=== PATIENT | female | born 1980 | race Caucasian/White ===

== ENCOUNTER → 2017-02-17 | Outpatient (CLI) | payer OTHER ==
[~2017-02-17] MED LIST: AC500T PO; ACET-789 PO; ACHYD1T PO; BPR150TCR PO; CALC-760 PO; DCS100C PO; FAMO20TA5 PO; FOLI0.4T2 PO; HYDR1TAB75 PO; IBP600T1 PO; IBP800T PO; METH0.2T45 PO; PREN1TAB39 PO
== END ==
LOC: WSo 09:14
PROVIDERS: ATTEND Obstetrics & Gynecology
DX: Z41.8 Encounter for other procedures for purposes other than remedying health state (principal)
CPT/HCPCS: 96372

== ENCOUNTER 2017-05-04 10:18 | Outpatient (CLI) | payer OTHER ==
[~2017-05-04] VITALS: Ht 167.6 cm; Wt 78.9 kg
[2017-05-04 10:24] VITALS: BP 127/77
[2017-05-04] MEDS ORDERED: ESCI10TA PO (10:28)
== END 2017-05-04 10:35 | disposition home or self-care (01) ==
LOC: PREOP 10:18
PROVIDERS: ATTEND Obstetrics & Gynecology
DX: Z01.818 Encounter for other preprocedural examination (principal); O34.219 Maternal care for unspecified type scar from previous cesarean delivery; O99.019 Anemia complicating pregnancy, unspecified trimester; Z3A.00 Weeks of gestation of pregnancy not specified
CPT/HCPCS: 87081

== ENCOUNTER 2017-05-08 10:00 | Inpatient (IN) | payer OTHER ==
[~2017-05-08] VITALS: Ht 167.6 cm; Wt 78.9 kg
[~2017-05-08 10:00] MED LIST changes: +ESCI10TA PO
[2017-05-08 10:45] LABS: BASOPHILS % (AUTO) 0 % (0-10); EOSINOPHILS # (AUTO) 0.1 10^3/uL (0.0-0.3); EOSINOPHILS % (AUTO) 1 % (0-10); LYMPHOCYTES # (AUTO) 1.2 X 10^3 (1.0-4.0); LYMPHOCYTES % (AUTO) 16 % (12-44); MEAN CORPUSCULAR HEMOGLOBIN 33 PG (25-34); MEAN CORPUSCULAR HGB CONC 35 G/DL (32-36); MEAN CORPUSCULAR VOLUME 95 FL (80-99); MEAN PLATELET VOLUME 10.9 FL (7.4-10.4); MONOCYTES # (AUTO) 0.7 X 10^3 (0.0-1.0); MONOCYTES % (AUTO) 9 % (0-12); NEUTROPHILS # (AUTO) 5.9 X 10^3 (1.8-7.8); NEUTROPHILS % (AUTO) 74 % (42-75); PLATELET COUNT 153 10^3/uL (130-400); RED BLOOD COUNT 3.32 10^6/uL (4.35-5.85); RED CELL DISTRIBUTION WIDTH 13.5 % (10.0-14.5); WHITE BLOOD COUNT 7.9 10^3/uL (4.3-11.0)
[2017-05-08] MEDS ORDERED: FAMOTIDINE 20MG/2ML IV (PEPCID) IV ONE (10:45)
[2017-05-08] MEDS ORDERED: METOCLOPRAMIDE INJ 10 MG/2 ML (REGLAN) IV ONE (10:45)
[2017-05-08] MEDS ORDERED: CITRIC ACID/SOB CIT (BICITRA) 30 ML UDC PO ONE (10:45)
[2017-05-08] MEDS ORDERED: CATHETER FLUSH 10 ML SYR IV PRN ×2 (10:45)
[2017-05-08] MEDS ORDERED: ceFAZolin 2 GM/NS 50 ML IV ONE (10:45)
[2017-05-08] MEDS ORDERED: metroNIDAZOLE 500 MG/100 ML IVPB (PRE-MIX) IV ONE (10:45)
[2017-05-08] MEDS ORDERED: LACTATED RINGERS 1,000 ML IV ONE ×2 (10:51→10:54)
[2017-05-08] MEDS ORDERED: OXYTOCIN/NORMAL SALINE 1,000 ML IV ONE (10:51)
[2017-05-08] MEDS ORDERED: fentaNYL INJECTION 100 MCG/2 ML AMP ONE (10:52)
[2017-05-08] MEDS ORDERED: ONDANSETRON 4 MG/2 ML (SDV) Z0FRAN ONE (10:52)
[2017-05-08 10:53] VITALS: BP 132/83
[2017-05-08] MEDS ORDERED: D5 LR IV SOLUTION 1,000 ML IV SCH (11:47)
[2017-05-08] MEDS ORDERED: OXYTOCIN/NORMAL SALINE 500 ML IV SCH (11:49)
--- NOTE | 2017-05-08 11:54 | History & Physical ---
History and Physical Date Seen by Provider: May 08, 2017 Time Seen by Provider: 11:52 this patient is a 36-year-old 2 white female with an EDC of May 12, 2017 admitted now for repeat delivery. Patient's has been uncomplicated to date. She denies rupture membranes or bleeding. She does feel baby moving. Her blood type is Rh- and she did receive RhoGAM around 28 weeks gestation. allergies are none Medications are vitamins and Lexapro Past medical history, past surgical history obstetric history family history and social histories are per the antepartum record HEENT exam is normal Neck is supple no lymphadenopathy no thyromegaly Abdomen is gravid soft nontender nondistended Extremities show no clubbing cyanosis. There is no Homans sign. Pelvic exam is deferred Work is as follows Laboratory Tests Test 05/08/17 10:12 Range/Units White Blood Count 7.9 4.3-11.0 10^3/uL Red Blood Count 3.32 L 4.35-5.85 10^6/uL Hemoglobin 11.1 L 11.5-16.0 G/DL Hematocrit 32 L 35-52 % Mean Corpuscular Volume 95 80-99 FL Mean Corpuscular Hemoglobin 33 25-34 PG Mean Corpuscular Hemoglobin Concent 35 32-36 G/DL Red Cell Distribution Width 13.5 10.0-14.5 % Platelet Count 153 130-400 10^3/uL Mean Platelet Volume 10.9 H 7.4-10.4 FL Neutrophils (%) (Auto) 74 42-75 % Lymphocytes (%) (Auto) 16 12-44 % Monocytes (%) (Auto) 9 0-12 % Eosinophils (%) (Auto) 1 0-10 % Basophils (%) (Auto) 0 0-10 % Neutrophils # (Auto) 5.9 1.8-7.8 X 10^3 Lymphocytes # (Auto) 1.2 1.0-4.0 X 10^3 Monocytes # (Auto) 0.7 0.0-1.0 X 10^3 Eosinophils # (Auto) 0.1 0.0-0.3 10^3/uL Basophils # (Auto) 0.0 0.0-0.1 10^3/uL monitor shows occasional contractions and a normal heart rate pattern Assessment and plan 39-3/7 weeks' gestation with previous C-sections 2 for repeat delivery. Surgical risk complication recovering follow-up involvement fully discussed patient is prepared to proceed term at 39-3/7 weeks gestation for repeat Allergies and Home Medications Allergies Coded Allergies: No Known Drug Allergies (Unverified , 06/20/11) Home Medications Escitalopram Oxalate 10 Mg Tablet, 10 MG PO HS, (Reported) Vits W-Ca,Fe,Fa(<1MG) 1 Each Tablet, 1 EACH PO HS, (Reported) Clinical Quality Measures DVT/VTE Risk/Contraindication: Risk Factor Score Per Nursin RFS Level Per Nursing on Admit: 1=Low/No VTE PPX CARMITA WILLAMS MD May 08, 2017 11:54 am
[2017-05-08] MEDS ORDERED: D5 LR IV SOLUTION 1,000 ML IV ONE (11:57)
[2017-05-08] MEDS ORDERED: metroNIDAZOLE 500MG/100ML IVPB 100 ML IV ONE (12:00)
[2017-05-08] MEDS ORDERED: MEASLES,MUMPS,RUBELLA 1 EA INJ SC ONE (12:00)
[2017-05-08] MEDS ORDERED: PROMETHAZINE INJ 25 MG/ML (PHENERGAN) AMP IM PRN (12:00)
[2017-05-08] MEDS ORDERED: TETANUS,DIPTH,PERTUSS P/F (BOOSTRIX) 0.5 ML VIAL IM ONE (12:00)
[2017-05-08] MEDS ORDERED: ceFAZolin INJECTION 2,000 MG in NS (IVPB) 50 ML IV ONE (12:00)
[2017-05-08] MEDS ORDERED: MEPERIDINE (DEMEROL) INJ 100 MG/ML IM PRN (12:00)
[2017-05-08] MEDS ORDERED: KETOROLAC 30 MG/ML VIAL IVP ONE (12:50)
--- NOTE | 2017-05-08 12:59 | Progress Note-Post Operative ---
Post-Operative Progess Note Surgeon (s)/Rack Maker (s) Surgeon CARMITA WILLAMS MD Rack Maker: AMANDA WILLAMS, CC5 Pre-Operative Diagnosis repeat delivery Post-Operative Diagnosis same Procedure & Operative Findings Date of Procedure 05/08/17 Procedure Performed/Findings repeat delivery of a viable male infant with Apgars of 8 and 9 at 5 minutes respectfully weight of 8 lbs. 1 oz. or blood pH 7.27 Anesthesia Type spinal Estimated Blood Loss Estimated blood loss (mL): 600 mL Specimens/Packing Specimens Removed placenta and umbilical cord Packing: none CARMITA WILLAMS MD May 08, 2017 12:59 pm
[2017-05-08] MEDS ORDERED: diphenhydrAMINE 50 MG/ML INJ (BENADRYL) IV PRN (13:00)
[2017-05-08] MEDS ORDERED: ONDANSETRON 4 MG/2 ML (SDV) Z0FRAN IVP PRN (13:00)
[2017-05-08] MEDS ORDERED: METOCLOPRAMIDE INJ 10 MG/2 ML (REGLAN) IV PRN (13:00)
[2017-05-08] MEDS ORDERED: NALOXONE 0.4 MG/ML 1 ML (NARCAN) VIAL IV PRN ×2 (13:00)
[2017-05-08] MEDS ORDERED: MEPERIDINE (DEMEROL) INJ 50 MG/ML IVP PRN (13:00)
[2017-05-08] MEDS ORDERED: ONDANSETRON 4 MG/2 ML (SDV) Z0FRAN IV PRN (13:00)
[2017-05-08] MEDS ORDERED: morphine INJ 10 MG/ML 1ML (SYR OR VIAL) IVP PRN (13:00)
[2017-05-08 13:50] VITALS: BP 128/67
[2017-05-08 14:20] VITALS: BP 141/79
[2017-05-08] MEDS ORDERED: fentaNYL INJECTION 100 MCG/2 ML AMP IVP NR (14:30)
[2017-05-08] MEDS: oxyCODONE/APAP 10/325MG (PERCOCET 10) TABLET PO PRN ×3 (14:54→20:49)
[2017-05-08 17:34] VITALS: BP 126/77
[2017-05-08] MEDS: KETOROLAC 30 MG/ML VIAL IVP SCH ×2 (17:36→23:56)
[2017-05-08 20:00] VITALS: BP 133/75
[2017-05-08] MEDS: DOCUSATE SODIUM 100 MG (COLACE) CAP PO SCH (20:49)
[2017-05-09 00:10] VITALS: BP 136/66
[2017-05-09] MEDS: oxyCODONE/APAP 10/325MG (PERCOCET 10) TABLET PO PRN ×4 (00:54→18:03)
--- NOTE | 2017-05-09 01:02 | OPERATIVE REPORT ---
DATE OF SERVICE: 05/08/2017 PREOPERATIVE DIAGNOSIS: Term with previous C-sections x2. POSTOPERATIVE DIAGNOSIS: Term with previous C-sections x2. OPERATIVE PROCEDURE: Low transverse delivery of a live male infant with Apgars of 8 and 9 at 1 and 5 respectively. Weight 8 pounds 1 ounce. Cord blood pH was 7.27. time of 12:26. OPERATIVE DESCRIPTION: With the patient in the supine position under satisfactory spinal anesthesia, she was prepped and draped in the usual fashion for abdominal surgery. A Albert catheter was placed in the urinary bladder and left to dependent drainage. A repeat Pfannenstiel incision was made through the skin with a scalpel to excise the patient's previous Pfannenstiel incision by removing that scar. The abdomen was bladder retractor placed in position. Clean scalpel used to make a 4 cm hysterotomy incision transversely across lower uterine segment. A vigorous viable male infant was delivered via the uterine incision having had Apgars of 8 and 9 at 1 and 5, respectively, weight of 8 pounds 1 ounce. Cord blood pH of 7.27 and a time of 12:26. The infant was bulb suctioned on delivery of the head. The nuchal cord was easily released. The delivery completed and the umbilical cord doubly clamped and cut and the infant passed to Shelby Walden RN, the pediatric nurse in attendance for delivery. Cord bloods were obtained. Placenta delivered spontaneously Camejo, it was normal with a 3 vessel cord. The uterus was exteriorized and wiped clean with a wet laparotomy sponge. Uterine incision then closed with a running locked suture of 2-0 Vicryl. The uterus was returned to the abdominal cavity. All blood clot and debris were removed from the abdominal cavity. Sponge and needle counts correct and hemostasis assured. The anterior parietal peritoneum was closed with running suture of 2-0 Vicryl. Rectal muscles were closed with that suture as well. Rectus fascia was closed with 2-0 Vicryl, subcutaneous tissues were closed with 2-0 Vicryl, and the skin with belle. Sponge and needle counts were correct on completion of the delivery and the closure. Estimated blood loss was around 600 mL. The patient tolerated the procedure well and was transferred to the recovery room in stable condition. The was taken stable to the full term nursery under the care of Shelby Walden RN, pediatric nurse in attendance for delivery. Job ID: [id number] DocumentID: [id number] Dictated Date: 05/08/2017 14:52:52 Physician Support Coordinator Date: 05/08/2017 23:26:38 Dictated By: CARMITA WILLAMS MD
[2017-05-09 04:30] VITALS: BP 129/78
[2017-05-09] MEDS: KETOROLAC 30 MG/ML VIAL IVP SCH (06:15)
[2017-05-09] MEDS: DOCUSATE SODIUM 100 MG (COLACE) CAP PO SCH ×2 (07:43→21:20)
--- NOTE | 2017-05-09 07:46 | Progress Note-Standard ---
Standard Progress Note Progress Notes/Assess & Plan Date Seen by Provider: May 09, 2017 Time Seen by Provider: 07:45 Progress/Assessment & Plan patient is without complaint. She is ambulating, voiding, tolerating by mouth well, has good pain control. Patient denies chest pain, denies shortness of breath, denies nausea vomiting, denies headache. Vital Signs Date Time Temp Pulse Resp B/P (MAP) Pulse Ox O2 Delivery O2 Flow Rate FiO2 05/09/17 04:30 96.9 64 19 129/78 99 Room Air 05/09/17 00:10 98.8 64 18 136/66 99 Room Air 05/08/17 20:00 98.2 66 17 133/75 98 Room Air 05/08/17 17:34 98.2 67 16 126/77 97 Room Air 05/08/17 14:20 97.5 61 14 141/79 100 Room Air 05/08/17 13:50 97.4 58 14 128/67 100 Room Air 05/08/17 10:53 98.6 64 20 132/83 I & O 05/09/17 07:00 Intake Total 4750 ml Output Total 2250 ml Balance 2500 ml vital signs are stable. patient is afebrile The abdomen is benign. The incision is clean dry and intact. Extremities show clubbing cyanosis. There is no Homans sign. Assessment and plan postoperative day number 1 doing well. Patient requests resuming her Lexapro. Routine care with likely discharge home tomorrow CARMITA WILLAMS MD May 09, 2017 07:46
[2017-05-09] MEDS ORDERED: ESCI10TA PO (07:48)
[2017-05-09] MEDS ORDERED: DOCU100C37 PO (07:48)
[2017-05-09] MEDS ORDERED: IBUP-1780 PO (07:48)
[2017-05-09] MEDS ORDERED: OXYC-465 PO (07:48)
--- NOTE | 2017-05-09 07:49 | Discharge Instructions ---
Discharge Instructions Discharge Medications New, Converted or Re-Newed RX: RX on Chart Patient Instructions Patient Instructions: as directed Return to The Hospital For: as directed Activity & Diet Discharge Diet: No Restrictions Activity as Tolerated: No Orders-Post D/C & Referrals Follow Up Appt: RTC 1 week for incision check. Call to make follow up appt. for patient in 4 weeks. Wound Care: Remove belle, apply benzoin and steri strips. Activity Per routine post instructions. Please call in RX to patient pharmacy. Diet as tolerated Patient may shower or tub bathe as desired. Continue home meds CARMITA WILLAMS MD May 09, 2017 07:49
[2017-05-09 08:00] VITALS: BP 134/82
--- NOTE | 2017-05-09 10:43 | Anesthesia-Regional Post-Op ---
Regional Patient Condition Mental Status: Alert, Oriented x3 Circulation: Same as Pre-Op Headache: Absent Sensation: Full Recovery Motor Block: Absent Post Op Complications Complications None Follow Up Care/Instructions Patient Instructions None needed. Anesthesia/Patient Condition Patient is doing well, no complaints, stable vital signs, no apparent adverse anesthesia problems. No complications reported per nursing. LAVERN ENRIQUEZ CRNA May 09, 2017 10:43
[2017-05-09] MEDS: IBUPROFEN 800 MG (MOTRIN) TAB PO SCH ×2 (11:55→18:03)
[2017-05-09 12:00] VITALS: BP 140/76
[2017-05-09 16:00] VITALS: BP 140/81
[2017-05-09 21:20] VITALS: BP 129/78
[2017-05-10] MEDS ORDERED: ONDANSETRON 8 MG (ZOFRAN) ORAL DISSOLVE TAB ONE (00:24)
[2017-05-10] MEDS: KETOROLAC 30 MG/ML VIAL IVP SCH (03:03)
[2017-05-10] MEDS ORDERED: ONDANSETRON 8 MG (ZOFRAN) ORAL DISSOLVE TAB PO PRN (03:15)
[2017-05-10 03:58] VITALS: BP 132/78
[2017-05-10] MEDS: IBUPROFEN 800 MG (MOTRIN) TAB PO SCH ×2 (06:32)
--- NOTE | 2017-05-10 07:01 | Progress Note-Standard ---
Standard Progress Note Progress Notes/Assess & Plan Date Seen by Provider: May 10, 2017 Time Seen by Provider: 07:00 Progress/Assessment & Plan patient is without complaint. She is ambulating, voiding, tolerating by mouth well, has good pain control. Patient denies chest pain, denies shortness of breath, denies nausea vomiting, denies headache. Vital Signs Date Time Temp Pulse Resp B/P (MAP) Pulse Ox O2 Delivery O2 Flow Rate FiO2 05/09/17 04:30 96.9 64 19 129/78 99 Room Air 05/09/17 00:10 98.8 64 18 136/66 99 Room Air 05/08/17 20:00 98.2 66 17 133/75 98 Room Air 05/08/17 17:34 98.2 67 16 126/77 97 Room Air 05/08/17 14:20 97.5 61 14 141/79 100 Room Air 05/08/17 13:50 97.4 58 14 128/67 100 Room Air 05/08/17 10:53 98.6 64 20 132/83 I & O 05/09/17 07:00 Intake Total 4750 ml Output Total 2250 ml Balance 2500 ml vital signs are stable. patient is afebrile The abdomen is benign. The incision is clean dry and intact. Extremities show clubbing cyanosis. There is no Homans sign. Assessment and plan postoperative day number 1 doing well. Patient requests resuming her Lexapro. Routine care with likely discharge home tomorrow May 10, 2017 Patient without complaint. She is ambulating, voiding, tolerating by mouth, has good pain control and is requesting discharge home. Vital Signs Date Time Temp Pulse Resp B/P (MAP) Pulse Ox O2 Delivery O2 Flow Rate FiO2 05/10/17 03:58 98.5 69 18 132/78 98 Room Air 05/09/17 21:20 98.6 65 18 129/78 98 Room Air 05/09/17 16:00 98.1 78 20 140/81 99 Room Air 05/09/17 12:00 98.0 66 18 140/76 99 Room Air 05/09/17 08:00 97.4 67 18 134/82 99 Room Air vital signs are stable. Patient is afebrile. Fundus is firm below the umbilicus and nontender. The incision is clean dry and intact. Mauro show clubbing cyanosis. There is no Homans sign. Assessment and plan postoperative day number 2 status post repeat doing well. Plan is for discharge home with follow-up in clinic. Final Diagnosis 39 week repeat delivery CARMITA WILLAMS MD May 10, 2017 7:01 am
--- NOTE | 2017-05-10 07:03 | Discharge Instructions ---
Discharge Instructions Orders-Post D/C & Referrals Follow Up Appt: RTC 1 week for incision check. Call to make follow up appt. for patient in 4 weeks. Wound Care: Remove belle, apply benzoin and steri strips. continue to apply hydrocortisone cream 2.5 percent to the wound twice a day Activity Per routine post instructions. Please call in RX to patient pharmacy. Diet as tolerated Patient may shower or tub bathe as desired. Continue home meds CARMITA WILLAMS MD May 10, 2017 7:03 am
[2017-05-10 08:20] VITALS: BP 133/77
[2017-05-10] MEDS ORDERED: HYDROCORTISONE 2.5% CREAM (ANUSOL-HC) 30 GM TOP SCH (09:00)
[2017-05-10] MEDS: DOCUSATE SODIUM 100 MG (COLACE) CAP PO SCH (10:00)
== END 2017-05-10 11:00 | disposition home or self-care (01) | DRG 766 ==
LOC: LDRP 10:00 → WS 13:50
PROVIDERS: ADMIT Obstetrics & Gynecology; ATTEND Obstetrics & Gynecology
PROC: 10D00Z1 Extraction of Products of Conception, Low, Open Approach (ICD-10-PCS; principal; 2017-05-08 12:03)
DX: O34.211 Maternal care for low transverse scar from previous cesarean delivery (principal); O69.81X0 Labor and delivery complicated by cord around neck, without compression, not applicable or unspecified; Z3A.39 39 weeks gestation of pregnancy; Z37.0 Single live birth
CPT/HCPCS: 36415; 85025; 86850; 86900; 86901; 94664

== ENCOUNTER → 2019-09-19 | Outpatient (CLI) | payer OTHER ==
[~2019-09-19] MED LIST changes: +DOCU100C37 PO; +IBUP-1780 PO; +OXYC-465 PO
--- NOTE | 2019-09-19 15:28 | Diagnostic Imaging Report ---
PROCEDURE: CT head and CT cervical spine without contrast. TECHNIQUE: Multiple contiguous axial images were obtained through the brain and cervical spine without the use of intravenous contrast. Sagittal and coronal reformations through the cervical spine were then performed. Auto Exposure Controls were utilized during the CT exam to meet ALARA standards for radiation dose reduction. INDICATION: Headache for the last five years, increasing in frequency over the last two weeks. The patient also complains of neck pain and arm tingling. COMPARISON: No prior studies are available for comparison. CT HEAD: The ventricles and sulci are within normal limits. No sulcal effacement or midline shift is detected. No acute intra-axial or extra-axial hemorrhage is detected. Cisterns are patent. Visualized paranasal sinuses are clear. IMPRESSION: No acute intracranial process is detected. CT CERVICAL SPINE: There is slight reversal of the normal cervical lordotic curvature. There is degenerative disc disease at the C5-C6 level with disc space narrowing and marginal spurring. No fractures are identified. Prevertebral tissues are within normal limits. Odontoid is intact. IMPRESSION: Cervical spondylosis and reversal of the normal curvature. No acute bony abnormality is detected. Dictated by: Dictated on workstation # [id number]
== END ==
LOC: RAD 14:59
PROVIDERS: ATTEND Nurse Practitioner Family
DX: M47.812 Spondylosis without myelopathy or radiculopathy, cervical region (principal); R20.2 Paresthesia of skin; R51 Headache
CPT/HCPCS: 70450; 72125

== ENCOUNTER 2019-10-21 10:45 | Outpatient (RCR) | payer OTHER | END 2019-12-29 | disposition home or self-care (01) | PROVIDERS: ATTEND Nurse Practitioner Family | DX: M50.30 Other cervical disc degeneration, unspecified cervical region (principal); Z87.891 Personal history of nicotine dependence; Z98.890 Other specified postprocedural states ==